=== PATIENT | female | born 1970 | race African-American/Black ===

== ENCOUNTER 2021-01-31 16:43 | Emergency (ER) | payer BC ==
[~2021-01-31] VITALS: Ht 160 cm; Wt 98.0 kg
[2021-01-31] MEDS ORDERED: DIPHENHYDRAMINE 50MG CAPSULE PO ONE (17:15)
[2021-01-31] MEDS ORDERED: SODIUM CHLORIDE 0.9% 1,000 ML IV ONE (17:15)
[2021-01-31] MEDS ORDERED: METHYLPREDNISOLONE SOD SUCC 125 MG/2 ML VIAL IV ONE (17:15)
[2021-01-31] MEDS ORDERED: P50 MT (18:27)
[2021-01-31] MEDS ORDERED: DIPH25CA83 PO (18:27)
[2021-01-31] MEDS ORDERED: EPIN0.3P3 IM (18:30)
[2021-01-31 19:05] VITALS: BP 172/92
== END 2021-01-31 19:06 | disposition home or self-care (01) ==
LOC: ER 16:43
DX: T78.40XA Allergy, unspecified, initial encounter (principal); F17.200 Nicotine dependence, unspecified, uncomplicated; Z88.0 Allergy status to penicillin; Z91.013 Allergy to seafood; Z88.8 Allergy status to other drugs, medicaments and biological substances; Z79.899 Other long term (current) drug therapy; Z98.890 Other specified postprocedural states; X58.XXXA Exposure to other specified factors, initial encounter
CPT/HCPCS: 93005; 96361; 96374; 99283; J2930; J7030; Q0163